=== PATIENT | male | born 1955 | race Caucasian/White ===

== ENCOUNTER → 2019-05-06 | Outpatient (CLI) | payer MEDICARE, BC ==
[~2019-05-06] MED LIST: ASPI81CH PO; ATOR40TA PO; Bactrim 400-801 EACH PO; Coreg12.5 MG PO; FURO20 PO; GLIP5 PO; Metformin HCl1000 MG PO; Mobic15 MG PO; POTA8 PO; Zestril40 MG PO
== END | disposition home or self-care (01) ==
LOC: LAB 18:35 → LAB SHORT 18:35
DX: L03.115 Cellulitis of right lower limb (principal)
CPT/HCPCS: 87071; 87075; 87077; 87147; 87186; 87205

== ENCOUNTER → 2020-05-17 | Outpatient (CLI) | payer MEDICARE, OTHER | END | disposition home or self-care (01) | LOC: LAB SHORT 10:22 → LAB 10:22 | DX: L02.611 Cutaneous abscess of right foot (principal); M65.071 Abscess of tendon sheath, right ankle and foot; E11.42 Type 2 diabetes mellitus with diabetic polyneuropathy | CPT/HCPCS: 87070; 87075; 87077; 87147; 87186; 87205 ==

== ENCOUNTER 2021-04-26 18:30 | Emergency (ER) | payer MEDICARE, OTHER ==
[~2021-04-26] VITALS: Ht 167.6 cm; Wt 95.2 kg
== END 2021-04-26 20:30 | disposition home or self-care (01) ==
LOC: ER 18:30
DX: S61.412A Laceration without foreign body of left hand, initial encounter (principal); E11.9 Type 2 diabetes mellitus without complications; I10 Essential (primary) hypertension; W26.8XXA Contact with other sharp object(s), not elsewhere classified, initial encounter; Y93.89 Activity, other specified; Y92.238 Other place in hospital as the place of occurrence of the external cause
CPT/HCPCS: 12002; 90471; 90714; 99282-25

== ENCOUNTER → 2022-10-07 | Outpatient (CLI) | payer MEDICARE, OTHER ==
[2022-10-07 13:44] LABS: BASOPHILS ABSOLUTE AUTO 0.08 K/mm3 (0.00-0.23); BASOPHILS PERCENT AUTO 1 % (0-2); EOSINOPHILS ABSOLUTE AUTO 0.21 K/mm3 (0.00-0.68); EOSINOPHILS PERCENT AUTO 1 % (0-6); Hematocrit 36.5 % (37.0-53.0); Hemoglobin 12.8 g/dL (13.5-17.5); IMMATURE GRAN ABSOLUTE AUTO 0.08 K/mm3 (0.00-0.10); IMMATURE GRAN PERCENT AUTO 1 % (0-1); LYMPHOCYTES ABSOLUTE AUTO 0.69 K/mm3 (0.84-5.20); LYMPHOCYTES PERCENT AUTO 5 % (21-46); MONOCYTES ABSOLUTE AUTO 1.28 K/mm3 (0.16-1.47); MONOCYTES PERCENT AUTO 9 % (4-13); Mean Corpuscular HGB 31.8 pg (26.0-34.0); Mean Corpuscular HGB Conc 35.1 g/dL (31.5-36.5); Mean Corpuscular Volume 91 fL (80-100); Mean Platelet Volume 8.8 fL (9.1-12.4); NEUTROPHILS ABSOLUTE AUTO 12.69 K/mm3 (1.96-9.15); NEUTROPHILS PERCENT AUTO 85 % (41-73); Platelet Count 244 K/mm3 (150-400); RDW Coefficient Variation 13.2 % (11.7-14.2); RDW Standard Deviation 43.4 fL (35.1-46.3); Red Blood Cell Count 4.03 M/mm3 (4.30-5.90); White Blood Cell Count 15.03 K/mm3 (4.00-11.30)
[2022-10-07 14:09] LABS: Albumin, Blood 3.3 g/dL (3.4-5.0); Albumin/Globulin Ratio 0.8 (0.8-1.8); Bilirubin, Total 0.6 mg/dL (0.1-1.0); Bun/Creatinine Ratio 25.6 (12.0-20.0); Calcium, Blood 8.9 mg/dL (8.5-10.1); Creatinine, Blood 0.86 mg/dL (0.60-1.20); Globulin, Blood 4.4 g/dL (2.2-4.0); Potassium, Blood 3.9 mmol/L (3.5-5.5); Total Protein, Blood 7.7 g/dL (6.4-8.2)
== END | disposition home or self-care (01) ==
LOC: LAB SHORT 13:39
PROVIDERS: Family Medicine
DX: E11.9 Type 2 diabetes mellitus without complications (principal); L03.115 Cellulitis of right lower limb
CPT/HCPCS: 80053; 83036; 85025; 85651

== ENCOUNTER → 2022-10-08 | Outpatient (CLI) | payer MEDICARE, OTHER ==
[~2022-10-08] MED LIST changes: +CEFTRIAXONE2 G1 IV; +CLOP75 PO; +CYCL10 PO; +GABA300 PO
== END | disposition home or self-care (01) ==
LOC: LAB 12:00 → LAB SHORT 12:00
DX: L02.611 Cutaneous abscess of right foot (principal)
CPT/HCPCS: 87070; 87071; 87075; 87076; 87077; 87147; 87185; 87186; 87205

== ENCOUNTER 2022-10-11 10:32 | Day surgery (SDC) | payer MEDICARE, OTHER ==
[~2022-10-11] VITALS: Ht 167.6 cm; Wt 104.2 kg
[~2022-10-11 10:32] MED LIST changes: -CEFTRIAXONE2 G1 IV; -CLOP75 PO; -CYCL10 PO; -GABA300 PO
[2022-10-11] MEDS ORDERED: CLOP75 PO (11:39)
[2022-10-11] MEDS ORDERED: GABA300 PO (11:39)
[2022-10-11] MEDS ORDERED: ATOR40TA PO (11:39)
[2022-10-11] MEDS ORDERED: CYCL10 PO (11:40)
[2022-10-11] MEDS ORDERED: CEFTRIAXONE2 G1 IV (12:19)
--- NOTE | 2022-10-11 18:40 | NUR ---
POST OP: REPORT RECIEVED FROM SHOT PEENING OPERATORJANNETH LOUISE AT 1440. PT TO UNIT, VSS, A/O. THERE IS SMALL AMT OF DRIED RED DRAINAGE AT R TOE AND HEAL, OTHERWISE WOUND WNL. PT REPORTS BASELINE N/T, PULSE +2, PT ABLE TO WIGGLE TOES. PT DENIES PAIN, LUNGS ARE CLEAR. WILL CTM. PLAN FOR OBSERVATION AND DC PER DR. DURAN ORDERS.
--- NOTE | 2022-10-11 18:44 | NUR ---
DRESSING CHANGE: AT ABOUT 1600 BLEEDING INCREASED TO MODERATE AMT OF RED BLOOD TO HEAL. CARTOGRAPHIC AIDE RISA AND THIS RN REMOVED WET DRESSING AND REPLACED WITH ABD PADS X2, WRAPPED FOOT IN KERLEX AND VALDEMAR. DRESSING NOW WNL AND WOUND BOOT APPLIED.
--- NOTE | 2022-10-11 18:46 | NUR ---
DISCHARGE: PT VSS, A/O, DENIES PAIN, N/V. SURGICAL SITE WNL. SEE PAPER CHART FOR DC ORDERS. PT EDUCATED ON DC PLAN AND PT REPORTED THAT APPOINTMENT PREVIOUSLY MADE WITH [facility] FOR THE NEXT 3 DAYS. NO SCRIPTS NEEDED. IV DC'D WNL, TIP INTACT. PT LEFT UNIT VIA WHEELCHAIR WITH THIS RN AT ABOUT 1730.
== END 2022-10-11 23:36 | disposition home or self-care (01) ==
LOC: ORSCMMR 10:32
PROVIDERS: Podiatrist
PROC: 0JBQ0ZZ Excision of Right Foot Subcutaneous Tissue and Fascia, Open Approach (ICD-10-PCS; principal; 2022-10-11 12:30)
DX: L03.115 Cellulitis of right lower limb (principal); B95.61 Methicillin susceptible Staphylococcus aureus infection as the cause of diseases classified elsewhere; E11.52 Type 2 diabetes mellitus with diabetic peripheral angiopathy with gangrene; I96 Gangrene, not elsewhere classified; Z79.84 Long term (current) use of oral hypoglycemic drugs; E11.42 Type 2 diabetes mellitus with diabetic polyneuropathy; I25.2 Old myocardial infarction; I10 Essential (primary) hypertension; E78.00 Pure hypercholesterolemia, unspecified; Z87.891 Personal history of nicotine dependence; Z79.899 Other long term (current) drug therapy; Z79.82 Long term (current) use of aspirin
CPT/HCPCS: 82947; 87071; 87075; 87077; 87186; 87205; C1713; J0690; J2250; J2704; J2795; J3010; J3370; J7120

== ENCOUNTER → 2022-10-12 | Outpatient (CLI) | payer MEDICARE, OTHER ==
[~2022-10-12] MED LIST changes: +CEFTRIAXONE2 G1 IV; +CLOP75 PO; +CYCL10 PO; +GABA300 PO
[2022-10-12 11:00] LABS: BASOPHILS ABSOLUTE AUTO 0.08 K/mm3 (0.00-0.23); BASOPHILS PERCENT AUTO 1 % (0-2); EOSINOPHILS PERCENT AUTO 3 % (0-6); Hematocrit 37.8 % (37.0-53.0); Hemoglobin 12.9 g/dL (13.5-17.5); IMMATURE GRAN ABSOLUTE AUTO 0.07 K/mm3 (0.00-0.10); IMMATURE GRAN PERCENT AUTO 1 % (0-1); LYMPHOCYTES ABSOLUTE AUTO 1.64 K/mm3 (0.84-5.20); LYMPHOCYTES PERCENT AUTO 14 % (21-46); MONOCYTES ABSOLUTE AUTO 0.64 K/mm3 (0.16-1.47); MONOCYTES PERCENT AUTO 5 % (4-13); Mean Corpuscular HGB 31.1 pg (26.0-34.0); Mean Corpuscular HGB Conc 34.1 g/dL (31.5-36.5); Mean Corpuscular Volume 91 fL (80-100); Mean Platelet Volume 8.3 fL (9.1-12.4); NEUTROPHILS ABSOLUTE AUTO 9.36 K/mm3 (1.96-9.15); NEUTROPHILS PERCENT AUTO 77 % (41-73); Platelet Count 339 K/mm3 (150-400); RDW Coefficient Variation 12.8 % (11.7-14.2); RDW Standard Deviation 41.9 fL (35.1-46.3); Red Blood Cell Count 4.15 M/mm3 (4.30-5.90); White Blood Cell Count 12.19 K/mm3 (4.00-11.30)
[2022-10-12 11:04] LABS: Bun/Creatinine Ratio 21.4 (12.0-20.0); Calcium, Blood 9.1 mg/dL (8.5-10.1); Creatinine, Blood 0.84 mg/dL (0.60-1.20); Potassium, Blood 4.8 mmol/L (3.5-5.5)
== END | disposition home or self-care (01) ==
LOC: LAB SHORT 10:55 → LAB 10:55
PROVIDERS: Physician Assistant
DX: L03.115 Cellulitis of right lower limb (principal)
CPT/HCPCS: 80048; 85025

== ENCOUNTER 2022-12-09 20:45 | Emergency (ER) | payer MEDICARE ==
[~2022-12-09] VITALS: Ht 167.6 cm; Wt 99.8 kg
== END 2022-12-09 22:08 | disposition home or self-care (01) ==
LOC: ER 20:45
DX: S61.211A Laceration without foreign body of left index finger without damage to nail, initial encounter (principal); W31.2XXA Contact with powered woodworking and forming machines, initial encounter; E11.9 Type 2 diabetes mellitus without complications; I10 Essential (primary) hypertension; Z79.899 Other long term (current) drug therapy; Z79.82 Long term (current) use of aspirin
CPT/HCPCS: 12001; 99282-25

== ENCOUNTER → 2023-03-06 | Outpatient (CLI) | payer MEDICARE ==
[~2023-03-06] MED LIST changes: +AMOCLA500 PO; +HYDR1TAB94 PO
== END | disposition home or self-care (01) ==
LOC: LAB 15:00 → LAB SHORT 15:00
DX: M86.172 Other acute osteomyelitis, left ankle and foot (principal); L97.412 Non-pressure chronic ulcer of right heel and midfoot with fat layer exposed; L97.524 Non-pressure chronic ulcer of other part of left foot with necrosis of bone
CPT/HCPCS: 87071; 87075; 87077; 87186; 87205

== ENCOUNTER 2023-03-07 11:27 | Day surgery (SDC) | payer MEDICARE ==
[~2023-03-07] VITALS: Ht 167.6 cm; Wt 102.5 kg
[2023-03-07] VITALS (8 sets, daily range): BP systolic 110–142; BP diastolic 69–86
[~2023-03-07 11:27] MED LIST changes: -AMOCLA500 PO; -HYDR1TAB94 PO
[2023-03-07] MEDS ORDERED: HYDR1TAB94 PO (11:49)
[2023-03-07] MEDS ORDERED: AMOCLA500 PO (11:54)
--- NOTE | 2023-03-07 14:30 | NUR ---
PT AWAKE AND ALERT, VITALS STABLE, LUNGS CTA, HRR. PT IS VERY ANXIOUS TO LEAVE. HE HAS REFUSED IBUPROFEN. SURGICAL SHOE PLACED ON LLE. DRESSING IS CDI. INSTRUCTIONS REVIEWED WITH PATIENT, PT VERBALIZED UNDERSTANDING. WHEELCHAIR TO CAR WITH RN ASSIST.
== END 2023-03-07 22:44 | disposition home or self-care (01) ==
LOC: ORSCMMR 11:27
PROVIDERS: Podiatrist
PROC: 0Y6U0Z0 Detachment at Left 3rd Toe, Complete, Open Approach (ICD-10-PCS; principal; 2023-03-07 12:30)
DX: M86.8X7 Other osteomyelitis, ankle and foot (principal); I96 Gangrene, not elsewhere classified; E11.52 Type 2 diabetes mellitus with diabetic peripheral angiopathy with gangrene; I10 Essential (primary) hypertension; I25.10 Atherosclerotic heart disease of native coronary artery without angina pectoris; I25.2 Old myocardial infarction; F17.210 Nicotine dependence, cigarettes, uncomplicated; Z79.02 Long term (current) use of antithrombotics/antiplatelets; Z79.82 Long term (current) use of aspirin; Z79.899 Other long term (current) drug therapy
CPT/HCPCS: 82947; 88305; 88311; A9270; J0690; J2001; J2250; J2704; J2795; J7120

== ENCOUNTER 2024-01-13 12:33 | Emergency (ER) | payer MEDICARE ==
[~2024-01-13] VITALS: Ht 167.6 cm; Wt 99.8 kg
[~2024-01-13 12:33] MED LIST changes: +AMOCLA500 PO; +HYDR1TAB94 PO
[2024-01-13 12:35] VITALS: BP 141/72
[2024-01-13] MEDS ORDERED: GLIP5 PO (14:24)
[2024-01-13] MEDS ORDERED: Cymbalta20 MG PO (14:24)
[2024-01-13] MEDS ORDERED: CeFAZolin Sodium 1000 mg Vial IM ONE (15:15)
[2024-01-13] MEDS ORDERED: OxyCODONE 10/Acetamin 325 TABLET PO ONE (15:15)
[2024-01-13] MEDS ORDERED: CEPH500 PO (15:25)
== END 2024-01-13 15:40 | disposition home or self-care (01) ==
LOC: ER 12:33
DX: S62.522B Displaced fracture of distal phalanx of left thumb, initial encounter for open fracture (principal); E11.9 Type 2 diabetes mellitus without complications; I10 Essential (primary) hypertension; W45.8XXA Other foreign body or object entering through skin, initial encounter; Z79.84 Long term (current) use of oral hypoglycemic drugs; Z79.82 Long term (current) use of aspirin; Z79.899 Other long term (current) drug therapy
CPT/HCPCS: 12002; 73140; 96372-59; 99283-25; A9270; J0690

== ENCOUNTER 2024-12-03 07:11 | Day surgery (SDC) | payer MEDICARE ==
[~2024-12-03] VITALS: Ht 167.6 cm; Wt 96.4 kg
[2024-12-03] VITALS (8 sets, daily range): BP systolic 120–152; BP diastolic 38–86
[~2024-12-03 07:11] MED LIST changes: +CEPH500 PO; +CeFAZolin Sodium 2,000 MG in NS 100 ML IV SCH; +Cymbalta20 MG PO; +FentaNYL Citrate 50 MCG/ML 2 ML Injection ONE; +Ketorolac Tromethamine 30mg Vial ONE; +Lactated Ringer's 1,000 ML IV SCH; +Metoclopramide HCl 5MG / ML 2ML Vial ONE; +Ondansetron HCl 2 MG / ML 2ML Vial ONE; +Rocuronium Bromide 10 MG/ML 5ML Injection IV ONE; +Sugammadex Sodium 200 MG/2ML SDV (100 MG/ML) ONE; +propofoL 20 ML IV ONE
[2024-12-03] MEDS ORDERED: Bupivacaine 0.5% W/EPI 1:200000 SDV 30 ML Vial ONE (07:30)
--- NOTE | 2024-12-03 07:44 | NUR ---
Ambulatory in Day SurgeryPre-Op teaching done. Pt verbalizes understanding. History, Chart, Medications and Allergies reviewed before start of procedure.Patient confirms NPO status and agrees with scheduled surgery. Patient reports completing Chlorhexadine shower X2 prior to admission to hospital.Patient States Post-Procedure ride home has been arranged.
[2024-12-03] MEDS ORDERED: CLOP75 (07:47)
[2024-12-03] MEDS ORDERED: ASPI81CH (07:47)
[2024-12-03] MEDS ORDERED: METF500 PO (07:48)
[2024-12-03] MEDS ORDERED: Carvedilol12.5 MG PO (07:49)
[2024-12-03] MEDS ORDERED: GABA300 PO (07:50)
[2024-12-03] MEDS ORDERED: IBUP800 (07:51)
[2024-12-03] MEDS ORDERED: LISI20 (07:51)
[2024-12-03] MEDS ORDERED: Norco 5-325 Ta1 EACH (07:51)
[2024-12-03] MEDS ORDERED: Bupivacaine 0.5% HCl 5 MG/ML 30MLVIAL ONE (07:57)
[2024-12-03] MEDS ORDERED: CeFAZolin Sodium 2,000 MG VIAL ONE (08:22)
--- NOTE | 2024-12-03 08:29 | NUR ---
7006 TIME OUT PREFORMED W/ DR. JONAS FOR MODIFIED RIGHT ANKLE BLOCK. SEE ANESTHESIA RECORD. IV FENTANYL GIVEN PER DR. JONAS CONT. SAO2=92-95, HR=75-77 BPM
[2024-12-03] MEDS ORDERED: Midazolam HCl 1MG / ML 2ML Vial ONE (08:38)
[2024-12-03] MEDS ORDERED: OXYC5 (08:39)
[2024-12-03] MEDS ORDERED: propofoL 20 ML IV ONE (09:30)
[2024-12-03] MEDS ORDERED: Ketorolac Tromethamine 30mg Vial ONE (09:59)
--- NOTE | 2024-12-03 10:28 | NUR ---
REPORT RECEIVED FROM HORTENSIA LAGUNAS. VSS. PT ON RA. PT A&OX4. PT ABLE TO REPOSITION SELF IN BED. PT REQUESTING PO FLUIDS AND TOLERATING THEM WELL. PT DENIES PAIN, NAUSEA OR OTHER DISCOMFORTS. PT HAS GAUZE/VALDEMAR WRAP TO RIGHT FOOT THAT IS CDI. PT ALSO HAS POST-OP SHOE TO RIGHT FOOT CDI.
--- NOTE | 2024-12-03 10:52 | NUR ---
Patient up to Ambulate independently. Gait steady. VSS AND CONSISTENT WITH PT BASELINE. PT HAS NO COMPLAINTS AND VERBALIZES READINESS TO GO HOME. Discharge instructions reviewed with patient. Patient verbalizes understanding. Copy given to patient to take home. Dressing to procedure site clean, dry, intact with no visible drainage, swelling, erythema or bruising noted. Patient States Post-Procedure ride home has been arranged. Discharged via wheelchair to private car for ride home. PT BELONGINGS RETURNED TO PT.
--- NOTE | 2024-12-03 15:01 | NUR ---
CONTACED DR DURAN PT ARRIVED TO UNIT WITH NO ORDERS. EXPLAINED TO HIM THAT TO HAVE HOSPITALIST ADMIT HE MUST CALL AND MD MUST ACCEPT. PER ER DR MALONEY IS UP FOR ADMIT, NUMBER GIVEN TO DR DURAN. NURSING PROSTHETICS ASSISTANT NOTIFIED.
== END 2024-12-03 23:00 | disposition home or self-care (01) ==
LOC: ORSCMMR 07:11 → ORSCSDS 09:00 → ORSCMMR 14:59 → SURS 14:59 → ORSCMMR 23:00
PROVIDERS: Podiatrist
PROC: 0QTN0ZZ Resection of Right Metatarsal, Open Approach (ICD-10-PCS; principal; 2024-12-03 09:00)
DX: L97.511 Non-pressure chronic ulcer of other part of right foot limited to breakdown of skin (principal); M20.41 Other hammer toe(s) (acquired), right foot; E11.42 Type 2 diabetes mellitus with diabetic polyneuropathy; I10 Essential (primary) hypertension; I25.2 Old myocardial infarction; E78.00 Pure hypercholesterolemia, unspecified; Z79.02 Long term (current) use of antithrombotics/antiplatelets; Z79.84 Long term (current) use of oral hypoglycemic drugs; Z79.899 Other long term (current) drug therapy; Z87.891 Personal history of nicotine dependence; E66.9 Obesity, unspecified; Z68.35 Body mass index [BMI] 35.0-35.9, adult
CPT/HCPCS: 82947; 88305; 88311; 93005; 93010; J0690; J1885; J2250; J2405; J2704; J2765; J3010; J7120

== ENCOUNTER → 2024-12-23 | Outpatient (CLI) | payer MEDICARE ==
[~2024-12-23] MED LIST changes: +ASPI81CH; +CLOP75; +Carvedilol12.5 MG PO; -CeFAZolin Sodium 2,000 MG in NS 100 ML IV SCH; -FentaNYL Citrate 50 MCG/ML 2 ML Injection ONE; +IBUP800; -Ketorolac Tromethamine 30mg Vial ONE; +LISI20; -Lactated Ringer's 1,000 ML IV SCH; +METF500 PO; -Metoclopramide HCl 5MG / ML 2ML Vial ONE; +Norco 5-325 Ta1 EACH; +OXYC5; -Ondansetron HCl 2 MG / ML 2ML Vial ONE; -Rocuronium Bromide 10 MG/ML 5ML Injection IV ONE; -Sugammadex Sodium 200 MG/2ML SDV (100 MG/ML) ONE; -propofoL 20 ML IV ONE
== END ==
LOC: LAB 17:58 → LAB SHORT 17:58
DX: L97.522 Non-pressure chronic ulcer of other part of left foot with fat layer exposed (principal)
CPT/HCPCS: 87070; 87077; 87147; 87186; 87205; 87220